=== PATIENT | male | born 1950 | race Caucasian/White ===

== ENCOUNTER 2016-12-17 16:32 | Emergency (ER) | payer MEDICARE ==
[2016-12-17 16:55] LABS: BASOPHIL# 0.1 X 10^3uL (0.0-0.1); BASOPHILS 1.6 % (0.0-2.0); EOSINOPHILS 3.1 % (0.0-6.0); EOSINOPHILS# 0.2 X 10^3uL (0.0-0.4); HEMATOCRIT 51.9 % (42.0-54.0); HEMOGLOBIN 18.2 g/dL (14.0-18.0); LYMPHOCYTES 25.3 % (20.0-40.0); LYMPHOCYTES# 1.9 X 10^3uL (0.8-3.8); MEAN CELL VOLUME 91.8 fL (80.0-100.0); MEAN CORPUSCULAR HEMOGLOBIN 32.1 pg (29.0-35.0); MEAN PLATELET VOLUME 9.4 fL (7.4-10.4); MONOCYTES 7.7 % (2.0-10.0); MONOCYTES# 0.6 X 10^3uL (0.2-1.0); NEUTROPHILS 62.3 % (54.0-75.0); NEUTROPHILS# 4.5 X 10^3uL (2.6-6.7); PLATELET COUNT 181 X 10^3uL (130-440); RED BLOOD COUNT 5.65 X 10^6uL (4.20-6.10); RED CELL DISTRIBUTION WIDTH 10.9 % (11.5-14.5); WHITE BLOOD COUNT 7.3 X 10^3uL (3.9-10.7)
[2016-12-17 17:18] LABS: BLOOD UREA NITROGEN 19 mg/dL (9-20); CALCIUM 9.5 mg/dL (8.4-10.2); CHLORIDE 100 mmol/L (98-107); CREATININE 0.9 mg/dL (0.7-1.3); EST GLOMERULAR FILTRATION RATE > 60 mL/min; GLUCOSE 97 mg/dL (70-100); POTASSIUM 2.8 mmol/L (3.5-5.1); SODIUM 138 mmol/L (137-145)
[2016-12-17 17:33] LABS: TROPONIN I < 0.012 ng/mL (0.00-0.034)
[2016-12-17] MEDS ORDERED: POTASSIUM EFF 25 MEQ TABLET ONE (18:00)
--- NOTE | 2016-12-17 18:18 | ER NURSING DOCUMENTATION ---
Nurse's Notes [facility] Name:Tristan Fletcher Age:66 yrs Sex:Male :1950 Arrival Date:12/17/2016 Time:16:32 BedTrauma-C Private MD:Adrian Duran Diagnosis:Palpitations;Hypokalemia Presentation: 12/17 16:39 Acuity: QUENTIN 2 tg 17:22 Presenting complaint: Patient states: 15 seconds of palpitations 1 hour [employer]. Transition tg of care: patient was not received from another setting of care. AIR CAT ACTIVATION no. Asprin Given n/a. 17:22 Method Of Arrival: Private Vehicle tg Triage Assessment: 16:42 General: Appears in no apparent distress, Behavior is cooperative, pleasant. Pain: tg Denies pain. Neuro: Level of Consciousness is awake, alert. Cardiovascular: Capillary refill < 3 seconds Reports 15 sec episode of palpitations 1 hour [employer]. No nausea, SOB, diaphoresis Denies fatigue, lightheadedness, Rhythm is sinus rhythm. Respiratory: Respiratory effort is even, unlabored. Derm: Skin is pink, warm & dry. Historical: - Allergies: Adalat (bradycardia); Acetaminophen; - Home Meds: 1. Lisinopril Oral 2. HCTZ - PMHx: HYPERTENSION; - PSHx: HERNIA REPAIR; - Tetanus: < 10 years. - Immunization history: Pneumococcal vaccine status is unknown. - Ebola Screening: : Patient negative for fever greater than or equal to 101.5 degrees Fahrenheit, and additional compatible Ebola Virus Disease symptoms. Patient denies exposure to infectious person. Patient denies travel to an Ebola-affected area in the 21 days before illness onset. No symptoms or risks identified at this time. . - Social history: Smoking status: Patient states was never smoker of tobacco. Screenin:45 Infectious Disease Risk Unable to Obtain. Abuse screen: Denies threats or abuse. Denies tg injuries from another. Nutritional screening: No deficits noted. Assessment: 16:43 See Triage Assessment done by same RN. tg Vital Signs: 16:30 BP 131 / 79 (auto/); ma 16:32 Pulse 73 MON; Resp 16; Pulse Ox 97% ; ma 16:40 BP 156 / 88; Pulse 73; Resp 16; Temp 97.3(O); Pulse Ox 94% on R/A; Weight 80.74 kg (R); tg Height 5 ft. 10 in. (177.80 cm) (R); Pain 0/10; 16:45 BP 134 / 81 (auto/); ma 16:47 Pulse 71 MON; Resp 15; Pulse Ox 98% ; ma 16:57 Pulse 69 MON; Resp 14; Pulse Ox 90% ; tg 17:00 BP 115 / 76 (auto/); tg 17:27 Pulse 71 MON; Resp 17; Pulse Ox 95% ; tg 17:30 BP 112 / 71 (auto/); tg 16:40 Body Mass Index 25.54 (80.74 kg, 177.80 cm) tg ED Course: 16:33 Patient arrived in ED. ds 16:33 Adrian Duran MD is Private Physician. ds 16:39 Triage completed. tg 16:40 Boby Gardner, DEYSI is Primary Nurse. tg 16:40 Inserted peripheral IV: 20 gauge in right antecubital area. tg 16:43 Arm band placed on Bed in low position Call Light in Reach Gowned HOB Elevated Side tg rails up x1. 16:45 Valuables Remains with patient. panel monitor on. Pulse ox on. tg 16:56 Aron Chapa MD is Attending Physician. tl1 17:08 EKG attached ma 17:59 Adrian Duran MD is Referral Physician. tl1 18:02 Jamir Aguilar MD is Referral Physician. tl1 Administered Medications: 17:53 Drug: Potassium Effervescent Tablet 50 mEq; Route: PO; tg 18:17 Follow up: Response: No adverse reaction tg Outcome: 18:01 Discharge ordered by . tl1 18:16 Discharged to home ambulatory. tg 18:16 Condition: stable 18:16 Discharge Assessment: Patient awake, alert and oriented x 3. No cognitive and/or functional deficits noted. Patient verbalized understanding of disposition instructions. 18:16 Instructed on discharge instructions, follow up and referral plans. 18:16 IV D/Sin 18:17 Patient left the ED. tg 12/18 10:03 Discharge F/U Call: Spoke with: patient. Have you made a f/u appointment? yes Overall lp Care on a scale of 1-10 with 10 being the best care, you rate our care as: What is the one thing you feel we could do to improve? Patient's answer: Yes feeling much better 10:03 Discharge F/U Call: Overall Care on a scale of 1-10 with 10 being the best care, you lp rate our care as: the rating of 10. Signatures: Boby Gardner RN RN Thu Fields RN RN ma Pavlish, Lena, RN RN lp Srot, Meenu, Reg Reg deric Chapa, MD LADY Sharp tl1
--- NOTE | 2016-12-17 18:18 | ER PHYSICIAN DOCUMENTATION ---
Physician Documentation [facility] Name:Tristan Fletcher Age:66 yrs Sex:Male :1950 Arrival Date:12/17/2016 Time:16:32 BedTrauma-C Private MD:Adrian Duran EDSammiAron Disposition: 12/17 18:22 Chart complete. tl1 Disposition: 12/17/16 18:01 Discharged to Home/Self Care. Impression: Palpitations, Hypokalemia. - Condition is Good. - Discharge Instructions: HYPOKALEMIA, PALPITATIONS, DIET, High Potassium. - Medical Reconciliation form form. - Follow up: Adrian Duran MD; When: 7 - 10 days; Reason: Recheck today's complaints. Follow up: Jamir Aguilar MD; When: 2 - 3 days; Reason: Recheck today's complaints, Continuance of care. - Problem is new. - Symptoms have improved. - Notes: Increase your potassium to 20 meq twice a day for the next week. Call the office of Dr Aguilar tomorrow to make arrangements for an appointment to consider having a Holter monitor for a couple of days. HPI: 16:56 This 66 yrs old Male presents to ER with complaints of palpitations. tl1 16:57 The patient presents with a history of irregular heart beat, heart racing. Context: The tl1 symptoms occur at rest. Onset: The symptom(s)/episode began/occurred suddenly. Duration: The patient or guardian reports a single episode, that lasted 15 second(s). Modifying factors: The symptoms are aggravated by nothing. The symptoms are alleviated by nothing. The patient has experienced similar episodes in the past, several times. He has had several similar episodes over the past 2 weeks or so, most recently yesterday. Some have been characterized by abrupt onset of lightheadedness, malaise, and some shakiness, w/o palpitations. He is concerned that he could have A fib.. Historical: - Allergies: Adalat (bradycardia); Acetaminophen; - Home Meds: 1. Lisinopril Oral 2. HCTZ - PMHx: HYPERTENSION; - PSHx: HERNIA REPAIR; - Tetanus: < 10 years. - Immunization history: Pneumococcal vaccine status is unknown. - Ebola Screening: : Patient negative for fever greater than or equal to 101.5 degrees Fahrenheit, and additional compatible Ebola Virus Disease symptoms. Patient denies exposure to infectious person. Patient denies travel to an Ebola-affected area in the 21 days before illness onset. No symptoms or risks identified at this time. . - Social history: Smoking status: Patient states was never smoker of tobacco. ROS: 17:00 Cardiovascular: Positive for palpitations, Negative for chest pain, edema, orthopnea, tl1 paroxysmal nocturnal dyspnea. 17:00 Abdomen/GI: Negative for abdominal pain, nausea, vomiting, diarrhea, black/tarry stool, rectal bleeding. 17:00 Neuro: Negative for headache, numbness, weakness. 17:00 All other systems are negative. Exam: 17:11 Constitutional: This is a well developed, well nourished patient who is awake, alert, tl1 and in no acute distress. Head/Face: Normocephalic, atraumatic. Eyes: Pupils equal round and reactive to light, extra-ocular motions intact. Lids and lashes normal. Conjunctiva and sclera are non-icteric and not injected. Cornea within normal limits. Periorbital areas with no swelling, redness, or edema. ENT: Nares patent. No nasal discharge, no septal abnormalities noted. Tympanic membranes are normal and external auditory canals are clear. Oropharynx with no redness, swelling, or masses, exudates, or evidence of obstruction, uvula midline. Mucous membranes moist. Neck: Trachea midline, no thyromegaly or masses palpated, and no cervical lymphadenopathy. Supple, full range of motion without nuchal rigidity, or vertebral point tenderness. No Meningismus. 17:11 Chest/axilla: Normal chest wall appearance and motion. Nontender with no deformity. tl1 No lesions are appreciated. 17:11 Cardiovascular: Rate: normal, Rhythm: regular, Heart sounds: normal, no murmur, no rub, no gallop. 17:11 Respiratory: Respirations: normal, Breath sounds: are normal, no rales, rhonchi, no stridor, no wheezing. 17:11 Abdomen/GI: Inspection: abdomen appears normal, Palpation: abdomen is soft and non-tender. 17:11 Skin: Appearance: normal except for affected area. 17:11 Neuro: Exam negative for acute changes. Vital Signs: 16:30 BP 131 / 79 (auto/); ma 16:32 Pulse 73 MON; Resp 16; Pulse Ox 97% ; ma 16:40 BP 156 / 88; Pulse 73; Resp 16; Temp 97.3(O); Pulse Ox 94% on R/A; Weight 80.74 kg (R); tg Height 5 ft. 10 in. (177.80 cm) (R); Pain 0/10; 16:45 BP 134 / 81 (auto/); ma 16:47 Pulse 71 MON; Resp 15; Pulse Ox 98% ; ma 16:57 Pulse 69 MON; Resp 14; Pulse Ox 90% ; tg 17:00 BP 115 / 76 (auto/); tg 17:27 Pulse 71 MON; Resp 17; Pulse Ox 95% ; tg 17:30 BP 112 / 71 (auto/); tg 16:40 Body Mass Index 25.54 (80.74 kg, 177.80 cm) tg MDM: 16:56 Patient medically screened. tl1 17:08 EKG attached ma 17:12 Differential diagnosis: arrythmia, dehydration, stress disorder. Data reviewed: vital tl1 signs, nurses notes, lab test result(s), cardiac enzymes, CBC, electrolytes, hepatic panel, EKG, radiologic studies, plain films, and as a result, I will discharge patient. Counseling: I had a detailed discussion with the patient and/or guardian regarding: the historical points, exam findings, and any diagnostic results supporting the discharge/admit diagnosis, lab results, radiology results, the need for outpatient follow up, to return to the emergency department if symptoms worsen or persist or if there are any questions or concerns that arise at home. ECG:. 18:22 Special discussion: I have asked the patient/guardian to return tomorrow morning for tl1 re-evaluation of the patient's condition. Hypokalemia probably due to HCTZ. I recommended he get see Dr Duran to consider lowering his HCTZ dose or stopping it. His BP is fine now.. ED course: No further palpitations. No chest pain. Asymptomatic. Tolerated PO potassium.. 12/17 17:19 Order name: CBC AUTO DIF, MDIF/RMOR IF IND; Complete Time: 17:43 EDMS 12/17 17:34 Interpretation: WHITE BLOOD COUNT 7.3; HEMOGLOBIN 18.2; HEMATOCRIT 51.9; PLATELET COUNT tl1 181. 12/17 17:34 Order name: BASIC METABOLIC PANEL; Complete Time: 17:44 EDMS 12/17 17:43 Interpretation: Normal Except: POTASSIUM 2.8. tl1 12/17 17:34 Order name: MAGNESIUM; Complete Time: 17:44 EDMS 12/17 17:43 Interpretation: Normal: MAGNESIUM 2.0. tl1 12/17 17:34 Order name: TROPONIN I; Complete Time: 17:44 EDMS 12/17 17:43 Interpretation: Normal: TROPONIN I < 0.012. tl1 12/17 16:48 Order name: 12-lead EKG; Complete Time: 16:48 tg 12/17 16:48 Order name: Cardiac Monitoring - Continuous; Complete Time: 16:48 tg EC:34 Rate is 69 beats/min. Rhythm is regular, Normal Sinus Rhythm with LAFB. Left axis tl1 deviation noted. QRS is negative in leads II, III, aVF, aVR, V1, V2, V3, V4. WA interval is normal at 203 msec. QRS interval is normal at 97 msec. QT interval is normal at 406 msec. No Q waves. T waves are Normal. No ST changes noted. Clinical impression: NSR with LAFB. Interpreted by me. Reviewed by me. Dispensed Medications: 17:53 Drug: Potassium Effervescent Tablet 50 mEq; Route: PO; tg 18:17 Follow up: Response: No adverse reaction tg Signatures: Boby Gardner RN RN tg Thu Hammond RN RN ma Leigh, Tom, MD MD tl1
== END 2016-12-17 18:17 | disposition home or self-care (01) ==
LOC: ER 16:32
DX: R00.2 Palpitations (principal); E87.6 Hypokalemia; I44.4 Left anterior fascicular block; I10 Essential (primary) hypertension; Z79.899 Other long term (current) drug therapy
CPT/HCPCS: 80048; 83735; 84484; 85025; 93005; 99284

== ENCOUNTER 2017-02-25 14:07 | Emergency (ER) | payer MEDICARE ==
--- NOTE | 2017-02-25 15:23 | ER NURSING DOCUMENTATION ---
Nurse's Notes [facility] Name:Tristan Fletcher Age:67 yrs Sex:Male :1950 Arrival Date:02/25/2017 Time:14:07 Bed1 Private MD:[facility] Diagnosis:Hypertension Presentation: 02/25 14:08 Acuity: QUENTIN 3 rh 14:23 Presenting complaint: Patient states: Pt c/o elevated BP. Pt states he normally runs rh around 108/70's and today his last bp he check was 137/88. Pt states he has a fullness in his head. Transition of care: Home. 14:23 Method Of Arrival: Private Vehicle rh Triage Assessment: 14:25 General: Appears in no apparent distress, Behavior is cooperative. Pain: Denies pain. rh EENT: Oral mucosa is moist. Neuro: Level of Consciousness is awake, alert, obeys commands, Oriented to person, place, time, event, Reports Fullness in his head. Denies dizziness, headache diplopia. Cardiovascular: Capillary refill < 3 seconds. Derm: Skin is intact, is healthy with good turgor, Skin is pink, warm & dry. Historical: - Allergies: Tramadol-Acetaminophen; ACETAMINOPHEN; Bystolic; - Home Meds: 1. HCTZ 2. Lisinopril Oral - PMHx: Hypertension; - PSHx: HERNIA REPAIR; - Tetanus: < 10 years. - Ebola Screening: : Patient negative for fever greater than or equal to 101.5 degrees Fahrenheit, and additional compatible Ebola Virus Disease symptoms. - Immunization history: Pneumococcal vaccine is up to date, Flu Vaccine < 1 year. - Social history: Smoking status: Patient states was never smoker of tobacco. Screenin:26 Infectious Disease Risk None. Abuse screen: Denies threats or abuse. Denies injuries rh from another. Nutritional screening: No deficits noted. Assessment: 14:26 See Triage Assessment done by same RN. rh Vital Signs: 14:26 BP 149 / 86; Pulse 77; Resp 15; Temp 98.0(O); Pulse Ox 95% on R/A; Weight 80.74 kg; rh Height 5 ft. 9 in. (175.26 cm); Pain 0/10; 14:26 Body Mass Index 26.29 (80.74 kg, 175.26 cm) rh [place] Coma Score: 14:25 Eye Response: spontaneous(4). Verbal Response: oriented(5). Motor Response: obeys cd commands(6). Total: 15. ED Course: 14:08 Patient arrived in ED. ds 14:08 Triage completed. rh 14:08 Adrian Duran MD is Private Physician. ds 14:09 [facility] is Private Physician. ds 14:20 Notified ED Physician of patient's arrival and chief complaint. Dr. Michael notified. rh 14:21 Veronique Deluna is Primary Nurse. rh 14:26 Valuables Remains with patient Patient has correct armband on for positive rh identification. Call light in reach. Side rails up X 1. 14:26 Door closed. Noise minimized. Diet: Patient given water. Tolerated well. rh 14:41 Assisted to bathroom. rh 15:13 Easton Michael MD is Attending Physician. cd 15:13 [facility] is Referral Physician. cd Administered Medications: No medications were administered Outcome: 15:14 Discharge ordered by . cd 15:22 Discharged to home ambulatory. rh 15:22 Condition: improved 15:22 Discharge Assessment: Patient awake, alert and oriented x 3. No cognitive and/or functional deficits noted. Patient verbalized understanding of disposition instructions. 15:22 Discharge instructions given to patient, Instructed on discharge instructions, follow up and referral plans. Demonstrated understanding of instructions. 15:22 Patient left the ED. 06 19:55 Discharge F/U Call: Unable to reach: no answer Signatures: Patsy, Meenu, Reg Reg Easton Boss MD MD cd Hofsess, Rachel rh
--- NOTE | 2017-02-25 15:23 | ER PHYSICIAN DOCUMENTATION ---
Physician Documentation [facility] Name:Tristan Fletcher Age:67 yrs Sex:Male :1950 Arrival Date:02/25/2017 Time:14:07 Bed1 Private MD:[facility] ED PhysicianEaston Michael Disposition: 02/25/17 15:14 Discharged to Home/Self Care. Impression: Hypertension. - Condition is Fair. - Discharge Instructions: HYPERTENSION, Established, Out of Control. - Medical Reconciliation form form. - Follow [facility]: [facility]; When: 10 - 14 days; Reason: Recheck today's complaints, Continuance of care. - Problem is an ongoing problem. - Symptoms are unchanged. - Notes: Take HCTZ 25mg by mouth every morning.... Increase Lisinopril to 20mg by mouth twice a day.... Drink plenty of fluids....Rest.... Consider seeing Dr. Ramirez Fuentes, Neurosurgeon, [facility] for evaluation of your Cervical Spine. [facility] [phone] HPI: 02/25 14:15 This 67 yrs old Male presents to ER via Private Vehicle with complaints of cd High Blood Pressure. 14:15 The patient has elevated blood pressure and discovered this at home, with a home cd device. Onset: The symptom(s)/episode began/occurred acutely, this morning. Modifying factors: The symptoms are aggravated by neck pain from a previous injury. This is the usual cause of his BP coming up. He usually runs systolic of 108 ...he starts getting symptoms once it rises above 115.. Associated signs and symptoms: Pertinent positives: headache, nausea, weakness. Severity of symptoms: At its worst the blood pressure was moderate, 148 mm Hg, in the ED. The patient has experienced similar episodes in the past, and the symptoms today are exactly the same. Patient has tried many different medications and has found the combination of HCTZ and Lisinopril work very well. He is currently on HCTZ 25 mg by mouth every morning and Lisinopril 20 mg by mouth every morning. He has already taken his AM meds.. Historical: - Allergies: Tramadol-Acetaminophen; ACETAMINOPHEN; Bystolic; - Home Meds: 1. HCTZ 2. Lisinopril Oral - PMHx: Hypertension; - PSHx: HERNIA REPAIR; - Tetanus: < 10 years. - Ebola Screening: : Patient negative for fever greater than or equal to 101.5 degrees Fahrenheit, and additional compatible Ebola Virus Disease symptoms. - Immunization history: Pneumococcal vaccine is up to date, Flu Vaccine < 1 year. - Social history: Smoking status: Patient states was never smoker of tobacco. ROS: 14:25 Eyes: Negative for injury, pain, redness, discharge, blurry vision and loss of vision. cd ENT: Negative for injury, pain, epistaxis and discharge. Neck: Negative for injury, pain, stiffness and swelling. Abdomen/GI: Negative for abdominal pain, nausea, vomiting, diarrhea, constipation, distension, melena, hematochezia and hematemesis. Back: Negative for injury, pain or muscle spasms. Skin: Negative for injury, rash, itching and discoloration. 14:25 Neuro: Negative for weakness, numbness, tingling, and seizure, Positive for mild head cd fullness 14:25 Constitutional: Negative for chills, fever, poor PO intake. 14:25 Cardiovascular: Negative for chest pain, edema, orthopnea, palpitations. 14:25 Respiratory: Negative for dyspnea on exertion, shortness of breath. 14:25 All other systems are negative. Exam: Head/Face: Normocephalic, atraumatic. Eyes: Pupils equal round and reactive to light, extra-ocular motions intact. Lids and lashes normal. Conjunctiva and sclera are non-icteric and not injected. Cornea within normal limits. Periorbital areas with no swelling, redness, or edema. ENT: Nares patent. No nasal discharge, no septal abnormalities noted. Tympanic membranes are normal and external auditory canals are clear. Oropharynx with no redness, swelling, or masses, exudates, or evidence of obstruction, uvula midline. Mucous membranes moist. Neck: Trachea midline, no thyromegaly or masses palpated, and no cervical lymphadenopathy. Supple, full range of motion without nuchal rigidity, or vertebral point tenderness. No Meningismus. Cardiovascular: Regular rate and rhythm with a normal S1 and S2. No gallops, murmurs, or rubs. Normal PMI, no JVD. No pulse deficits. Respiratory: Lungs have equal breath sounds bilaterally, clear to auscultation and percussion. No rales, rhonchi or wheezes noted. No increased work of breathing, no retractions or nasal flaring. Abdomen/GI: Soft, non-tender, with normal bowel sounds. No distension or tympany. No guarding or rebound. No evidence of tenderness throughout. Skin: Warm, dry with normal turgor. Normal color with no rashes, no lesions, and no evidence of cellulitis. 14:25 Neuro: Awake and alert, GCS 15, oriented to person, place, time, and situation. cd Cranial nerves II-XII grossly intact. Motor strength 5/5 in all extremities. Sensory grossly intact. Cerebellar exam normal. Normal gait. 14:25 Constitutional: The patient appears alert, awake, non-diaphoretic, non-toxic, well developed, agitated, anxious. 14:25 Neuro: Orientation: is normal. 15:12 Cardiovascular: Rate: normal, Rhythm: regular, Pulses: no pulse deficits are cd appreciated, Heart sounds: normal. Vital Signs: 14:26 BP 149 / 86; Pulse 77; Resp 15; Temp 98.0(O); Pulse Ox 95% on R/A; Weight 80.74 kg; rh Height 5 ft. 9 in. (175.26 cm); Pain 0/10; 14:26 Body Mass Index 26.29 (80.74 kg, 175.26 cm) rh [place] Coma Score: 14:25 Eye Response: spontaneous(4). Verbal Response: oriented(5). Motor Response: obeys cd commands(6). Total: 15. MDM: 14:15 Data interpreted: Pulse oximetry: on room air is 95 %. Interpretation: normal. cd 15:10 Data reviewed: vital signs, nurses notes, old medical records, and as a result, I will cd discharge patient, We discussed the options and agreed that going up on his Lisinopril to 20mg by mouth BID is most prudent. HE will follow up with Dr. Jamir Aguilar.. 15:12 Counseling: I had a detailed discussion with the patient and/or guardian regarding: the cd historical points, exam findings, and any diagnostic results supporting the discharge/admit diagnosis, the need for outpatient follow up, for a recheck, for a referral to a specialist, a drywall taper, to return to the emergency department if symptoms worsen or persist or if there are any questions or concerns that arise at home. Response to treatment: There is no appreciated change of the patient's symptoms at this time, and as a result, I will discharge patient. 15:13 Patient medically screened. cd Dispensed Medications: No medications were administered Signatures: Easton Michael MD MD cd Hofsess, Rachel
== END 2017-02-25 15:23 | disposition home or self-care (01) ==
LOC: ER 14:07
DX: I10 Essential (primary) hypertension (principal); Z79.899 Other long term (current) drug therapy; G89.29 Other chronic pain; M54.2 Cervicalgia
CPT/HCPCS: 99282